=== PATIENT | male | born 1990 | race Hispanic/Latino ===

== ENCOUNTER 2020-08-29 20:45 | Emergency (ER) | payer SELFPAY ==
[~2020-08-29] VITALS: Ht 170.2 cm; Wt 65.8 kg
[2020-08-29] MEDS ORDERED: AMOXICILLIN500 MG PO (21:33)
[2020-08-29] MEDS ORDERED: HYDROCODON-ACE1 EA10 PO (21:33)
--- OUTSIDE RECORDS SUMMARY | 2020-08-29 22:30 | XMS ---
PreManage Notification: LORI QUIROS Security Sales Support Specialist Events No recent Security Events currently on file CRITERIA MET - [facility] - 2 Visits in 30 Days CARE PROVIDERS [facility] ROSEMARIE Orozco PHONE: Unknown IVA GILLIS Internal Medicine 12/24/2016-Current PHONE: [phone] Marci has no Care Guidelines for this patient. Scooter VISIT COUNT (12 MO.) [address] [place] [address] TOTAL 2 NOTE: Visits indicate total known visits. ED/UCC VISIT TRACKING (12 MO.) 08/29/2020 20:47 [facility] [place] TYPE: Emergency COMPLAINT: - JAW PAIN/INJURY 08/24/2020 02:57 [facility] [place] TYPE: Emergency COMPLAINT: - Jaw Injury DIAGNOSES: - Jaw Injury - Fracture of angle of left mandible, initial encounter for closed fracture - Facial Injury INPATIENT VISIT TRACKING (12 MO.) No inpatient visits to display in this time frame [email or web address]
== END 2020-08-29 21:42 | disposition home or self-care (01) ==
LOC: ED 20:45
DX: S02.609A Fracture of mandible, unspecified, initial encounter for closed fracture (principal); Y04.8XXA Assault by other bodily force, initial encounter; F17.200 Nicotine dependence, unspecified, uncomplicated
CPT/HCPCS: 99283